=== PATIENT | female | born 1940 | race Caucasian/White ===

== ENCOUNTER → 2016-11-30 | Outpatient (CLI) | payer MEDICARE, OTHER ==
[2016-11-30 16:32] LABS: BUN/Creatinine Ratio 23.1; Calcium 9.3 mg/dL (8.5-10.1); Potassium 4.3 mmol/L (3.5-5.1)
== END | disposition home or self-care (01) ==
LOC: LAB 14:20
PROVIDERS: ATTEND Internal Medicine Cardiovascular Disease
DX: I10 Essential (primary) hypertension (principal); E11.9 Type 2 diabetes mellitus without complications
CPT/HCPCS: 36415; 80048; 83036

== ENCOUNTER → 2017-02-17 | Outpatient (CLI) | payer MEDICARE, OTHER ==
[2017-02-17 10:16] LABS: Basophils # (auto) 0 uL; Basophils % (auto) 0.3 % (0.0-2.0); Eosinophils # (auto) 0.1 uL; Eosinophils % (auto) 1.3 % (0.0-7.0); Hematocrit 42.9 % (36.0-46.0); Hemoglobin 14.2 g/dL (12.2-16.2); Lymphocytes # (auto) 1.6 uL; Lymphocytes % (auto) 20.7 % (10.0-50.0); Mean Corpuscular Hemoglobin 30.5 pg (28.0-32.0); Mean Corpuscular Hgb Conc. 33.1 g/dL (32.0-36.0); Mean Corpuscular Volume 92.3 fL (80.0-100.0); Mean Platelet Volume 8.7 fL (7.4-10.4); Monocytes # (auto) 0.6 uL; Neutrophils # (auto) 5.4 uL; Neutrophils % (auto) 69.7 % (37.0-80.0); Platelet Count (auto) 252 10^3/uL (140-450); Red Cell Distribution Width 14.6 % (11.6-16.0); White Blood Cell 7.8 10^3/uL (4.4-10.8)
[2017-02-17 10:38] LABS: Albumin 3.3 g/dL (3.4-5.0); BUN/Creatinine Ratio 28.8; Bilirubin, Total 0.5 mg/dL (0.2-1.0); Calcium 8.9 mg/dL (8.5-10.1); Potassium 4.3 mmol/L (3.5-5.1)
== END | disposition home or self-care (01) ==
LOC: LAB 09:52
PROVIDERS: ATTEND Internal Medicine
DX: I10 Essential (primary) hypertension (principal); Z00.00 Encounter for general adult medical examination without abnormal findings; E78.5 Hyperlipidemia, unspecified; I73.9 Peripheral vascular disease, unspecified
CPT/HCPCS: 36415; 80053; 80061; 82043; 82306; 84443; 85025

== ENCOUNTER → 2017-03-01 | Outpatient (CLI) | payer MEDICARE, OTHER ==
[2017-03-01 16:39] LABS: Potassium 4.3 mmol/L (3.5-5.1)
[2017-03-01 16:44] LABS: BUN/Creatinine Ratio 26.9; Calcium 8.9 mg/dL (8.5-10.1)
== END | disposition home or self-care (01) ==
LOC: LAB 14:04
PROVIDERS: ATTEND Internal Medicine Cardiovascular Disease
DX: I10 Essential (primary) hypertension (principal); E11.9 Type 2 diabetes mellitus without complications
CPT/HCPCS: 36415; 80048; 83036

== ENCOUNTER → 2017-09-14 | Outpatient (CLI) | payer MEDICARE, OTHER ==
[~2017-09-14] VITALS: Ht 165.1 cm; Wt 92.5 kg
== END | disposition home or self-care (01) ==
LOC: Rad HDHVI 07:47
PROVIDERS: ATTEND Internal Medicine Cardiovascular Disease
DX: Z01.810 Encounter for preprocedural cardiovascular examination (principal); I25.10 Atherosclerotic heart disease of native coronary artery without angina pectoris; E78.5 Hyperlipidemia, unspecified
CPT/HCPCS: 78452; 93017; 93880; 96374; A9500

== ENCOUNTER → 2018-03-16 | Outpatient (CLI) | payer MEDICARE, BC | END | disposition home or self-care (01) | LOC: Rad HDHVI 13:42 | PROVIDERS: ATTEND Internal Medicine Cardiovascular Disease | DX: E11.40 Type 2 diabetes mellitus with diabetic neuropathy, unspecified (principal); I25.10 Atherosclerotic heart disease of native coronary artery without angina pectoris; E78.5 Hyperlipidemia, unspecified; I10 Essential (primary) hypertension; E11.9 Type 2 diabetes mellitus without complications; E78.00 Pure hypercholesterolemia, unspecified; I65.22 Occlusion and stenosis of left carotid artery | CPT/HCPCS: 93880 ==

== ENCOUNTER → 2018-09-26 | Outpatient (CLI) | payer MEDICARE, BC | END | disposition home or self-care (01) | LOC: Rad HDHVI 14:56 | PROVIDERS: ATTEND Internal Medicine Cardiovascular Disease | DX: I07.1 Rheumatic tricuspid insufficiency (principal); I10 Essential (primary) hypertension; I20.9 Angina pectoris, unspecified | CPT/HCPCS: 93306 ==

== ENCOUNTER → 2018-10-13 | Outpatient (CLI) | payer MEDICARE, BC ==
[~2018-10-13] VITALS: Ht 166.4 cm; Wt 87.5 kg
[2018-10-13 11:52] LABS: Basophils # (auto) 0 uL; Basophils % (auto) 0.8 % (0.0-2.0); Eosinophils # (auto) 0.5 uL; Hematocrit 40.6 % (36.0-46.0); Hemoglobin 13.3 g/dL (12.2-16.2); Lymphocytes # (auto) 1.1 uL; Lymphocytes % (auto) 17.9 % (10.0-50.0); Mean Corpuscular Hemoglobin 31.1 pg (28.0-32.0); Mean Corpuscular Hgb Conc. 32.7 g/dL (32.0-36.0); Monocytes # (auto) 0.6 uL; Monocytes % (auto) 10.9 % (0.0-12.0); Neutrophils # (auto) 3.6 uL; Neutrophils % (auto) 61.4 % (37.0-80.0); Nucleated Red Blood Cells % 0.2 %; Platelet Count (auto) 257 10^3/uL (140-450); Red Blood Cells 4.27 10^6/uL (4.0-5.20); Red Cell Distribution Width 13.7 % (11.8-14.3); Urine Blood 1+ /uL (Negative); Urine Specific Gravity 1.022 (1.001-1.035); White Blood Cell 5.9 10^3/uL (4.4-10.8)
[2018-10-13 12:04] LABS: Chloride 105 mmol/L (98-107); Potassium 4.3 mmol/L (3.5-5.1); Sodium 139 mmol/L (136-145)
[2018-10-13 12:11] LABS: Free T4 (Free Thyroxine) 1.12 ng/dL (0.89-1.76)
[2018-10-13 12:13] LABS: Alanine Aminotransferase 23 U/L (13-56); Albumin 3.1 g/dL (3.4-5.0); Alkaline Phosphatase 65 U/L (45-117); Anion Gap 5 (5-15); Aspartate Aminotransferase 13 U/L (15-37); BUN/Creatinine Ratio 28.8; Bilirubin, Total 0.4 mg/dL (0.2-1.0); Blood Urea Nitrogen 19 mg/dL (7-18); Calcium 8.6 mg/dL (8.5-10.1); Carbon Dioxide 29 mmol/L (21-32); Cholesterol 122 mg/dL (< 200); GFR African American > 60 mL/min; GFR Non-African American > 60 mL/min; Glucose 146 mg/dL (74-106); HDL Cholesterol 41 mg/dL (40-59); LDL Cholesterol 72 mg/dL (< 100); Total Protein 7.2 g/dL (6.4-8.2); Triglycerides 93 mg/dL (< 150)
== END | disposition home or self-care (01) ==
LOC: Rad HDHVI 08:25
PROVIDERS: ATTEND Internal Medicine Cardiovascular Disease
DX: I10 Essential (primary) hypertension (principal); E78.00 Pure hypercholesterolemia, unspecified; E11.40 Type 2 diabetes mellitus with diabetic neuropathy, unspecified; E11.65 Type 2 diabetes mellitus with hyperglycemia; E03.9 Hypothyroidism, unspecified; E11.9 Type 2 diabetes mellitus without complications; E55.9 Vitamin D deficiency, unspecified; D51.9 Vitamin B12 deficiency anemia, unspecified; N39.0 Urinary tract infection, site not specified
CPT/HCPCS: 36415; 78452; 80053; 80061; 81003; 82306; 82607; 83036; 84439; 84443; 85025; 87086; 93017; 96374; A9500

== ENCOUNTER 2018-11-21 23:13 | Emergency (ER) | payer MEDICARE, BC ==
[~2018-11-21] VITALS: Ht 165.1 cm; Wt 90.7 kg
[2018-11-22] MEDS ORDERED: PROPOFOL 100 ML IV ONE (01:54)
[2018-11-22] MEDS ORDERED: FAMOTIDINE (10MG/ML) 2ML VL IV ONE (02:00)
[2018-11-22] MEDS ORDERED: METOCLOPRAMIDE HCL 5MG/ml INJ 2ml VIAL IV ONE (02:00)
[2018-11-22] MEDS ORDERED: PROPOFOL 10 MG/ML 20 ML IV ONE ×2 (02:00→02:15)
[2018-11-22 02:25] VITALS: BP 142/76
== END 2018-11-22 02:44 | disposition home or self-care (01) ==
LOC: ER 23:22
DX: S43.005A Unspecified dislocation of left shoulder joint, initial encounter (principal); I10 Essential (primary) hypertension; Z88.6 Allergy status to analgesic agent; W01.0XXA Fall on same level from slipping, tripping and stumbling without subsequent striking against object, initial encounter; Y93.01 Activity, walking, marching and hiking; Y92.89 Other specified places as the place of occurrence of the external cause; Y99.8 Other external cause status
CPT/HCPCS: 23650; 73020; 73060; 96374; 96375; 99152; 99285; J2704; J2765; J3490; J7030

== ENCOUNTER 2019-02-21 06:58 | Day surgery (SDC) | payer MEDICARE, BC ==
[2019-02-17 09:54] LABS: Basophils # (auto) 0.1 uL; Basophils % (auto) 0.6 % (0.0-2.0); Eosinophils # (auto) 0.1 uL; Eosinophils % (auto) 1.1 % (0.0-7.0); Hematocrit 47.1 % (36.0-46.0); Hemoglobin 15.4 g/dL (12.2-16.2); Lymphocytes # (auto) 1.1 uL; Lymphocytes % (auto) 12.9 % (10.0-50.0); Mean Corpuscular Hemoglobin 30.3 pg (28.0-32.0); Mean Corpuscular Hgb Conc. 32.7 g/dL (32.0-36.0); Mean Corpuscular Volume 92.7 fL (80.0-100.0); Monocytes # (auto) 0.6 uL; Monocytes % (auto) 7.4 % (0.0-12.0); Neutrophils # (auto) 6.6 uL; Platelet Count (auto) 250 10^3/uL (140-450); Red Blood Cells 5.08 10^6/uL (4.0-5.20); Red Cell Distribution Width 14.4 % (11.8-14.3); White Blood Cell 8.4 10^3/uL (4.4-10.8)
[2019-02-17 10:06] LABS: Urine Bacteria FEW /hpf (None Seen); Urine Blood 1+ /uL (Negative); Urine Specific Gravity 1.024 (1.001-1.035); Urine WBC 5 /hpf (0 - 5)
[2019-02-17 10:09] LABS: Albumin 3.5 g/dL (3.4-5.0); Calcium 9.5 mg/dL (8.5-10.1); Potassium 3.9 mmol/L (3.5-5.1)
[2019-02-17 10:12] LABS: BUN/Creatinine Ratio 31.5; Bilirubin, Total 0.5 mg/dL (0.2-1.0); Total Protein 8.4 g/dL (6.4-8.2)
[2019-02-17 10:53] LABS: INR 0.97 (0.9-1.15); Partial Thromboplastin Time 26.6 sec (23.64-32.05)
[~2019-02-21] VITALS: Ht 165.1 cm; Wt 85.3 kg
[~2019-02-21 06:58] MED LIST: CALC1TAB47 PO; CHOL200021 PO; EMPA1TAB3 PO; GLIM4TAB42 PO; LISI-275 PO; MESA0.37 PO; METF-370 PO; MISC-1089 OR; SIMV-8 PO
[2019-02-21] MEDS ORDERED: HYDROmorphone HCL 2 MG/ML VL ONE (08:20)
[2019-02-21] MEDS ORDERED: ROCURONIUM 10MG/ML 10ML VIAL IV ONE (08:20)
[2019-02-21] MEDS ORDERED: SODIUM CHLORIDE LOCK 10 ML ONE (08:20)
[2019-02-21] MEDS ORDERED: ONDANSETRON HCL 4 MG/2 ML VIAL ONE (08:20)
[2019-02-21] MEDS ORDERED: fentaNYL CITRATE 10 ML ONE (08:20)
[2019-02-21] MEDS ORDERED: LIDOCAINE HCL 2% TOP JELLY 5ML TOP ONE (08:20)
[2019-02-21] MEDS ORDERED: PROPOFOL 10 MG/ML 20 ML IV ONE (08:20)
[2019-02-21] MEDS ORDERED: KETOROLAC TROMETH 60MG/2ML VIAL IM ONE (08:20)
[2019-02-21] MEDS ORDERED: MIDAZOLAM HCL 1MG/1ML-2 ML VIAL ONE (08:20)
[2019-02-21] MEDS ORDERED: fentaNYL CITRATE 100 MCG/2 ML VL ONE (08:20)
[2019-02-21] MEDS ORDERED: ceFAZolin 1GM/50ML 50 ML IV ONE (09:38)
[2019-02-21] MEDS ORDERED: KETOROLAC TROMETH 30 MG/ML 1ML VIAL IV ONE (09:45)
[2019-02-21] MEDS ORDERED: METOCLOPRAMIDE HCL 5MG/ml INJ 2ml VIAL IV ONE (09:45)
[2019-02-21] MEDS ORDERED: ACCU-CHEK COMFORT CURVE STRIP VI ONE (09:45)
[2019-02-21] MEDS ORDERED: HYDROmorphone HCL 2 MG/ML VL IV PRN (09:45)
[2019-02-21] MEDS ORDERED: MORPHINE SULFATE INJECTION 1 ML ONE (09:48)
[2019-02-21] MEDS ORDERED: ceFAZolin 1GM VL ONE (10:00)
[2019-02-21] MEDS ORDERED: LIDOCAINE 1% HCL (LOCAL ANESTH.) INJ 20ML MDV ONE (10:11)
[2019-02-21] MEDS ORDERED: KETOROLAC TROMETH 60MG/2ML VIAL ONE (11:18)
[2019-02-21 13:00] VITALS: BP 141/71
== END 2019-02-21 13:30 | disposition home or self-care (01) ==
LOC: SUR 06:58
PROVIDERS: ATTEND Orthopaedic Surgery
DX: M75.121 Complete rotator cuff tear or rupture of right shoulder, not specified as traumatic (principal); M75.21 Bicipital tendinitis, right shoulder; M19.011 Primary osteoarthritis, right shoulder; M75.41 Impingement syndrome of right shoulder; M24.111 Other articular cartilage disorders, right shoulder; M75.51 Bursitis of right shoulder; M65.811 Other synovitis and tenosynovitis, right shoulder; E66.9 Obesity, unspecified; E11.9 Type 2 diabetes mellitus without complications; Z87.59 Personal history of other complications of pregnancy, childbirth and the puerperium; Z96.631 Presence of right artificial wrist joint; Z96.698 Presence of other orthopedic joint implants; Z68.31 Body mass index [BMI] 31.0-31.9, adult; Z79.84 Long term (current) use of oral hypoglycemic drugs; Z79.899 Other long term (current) drug therapy
CPT/HCPCS: 23180; 23412; 23415; 36415; 80053; 81001; 82962; 83036; 85025; 85610; 85730; 88304; J0690; J1170; J1885; J2001; J2250; J2270; J2405; J2704; J3010

== ENCOUNTER → 2019-03-17 | Outpatient (CLI) | payer MEDICARE, BC ==
[2019-03-17 12:44] LABS: Potassium 4.3 mmol/L (3.5-5.1)
[2019-03-17 12:49] LABS: Albumin 3.3 g/dL (3.4-5.0); BUN/Creatinine Ratio 27.3; Calcium 8.8 mg/dL (8.5-10.1)
[2019-03-17 12:57] LABS: Bilirubin, Total 0.5 mg/dL (0.2-1.0); Total Protein 7.6 g/dL (6.4-8.2)
== END | disposition home or self-care (01) ==
LOC: LAB 08:36
PROVIDERS: ATTEND Internal Medicine Cardiovascular Disease
DX: E11.22 Type 2 diabetes mellitus with diabetic chronic kidney disease (principal)
CPT/HCPCS: 36415; 80053; 82043; 83036

== ENCOUNTER → 2019-09-04 | Outpatient (CLI) | payer MEDICARE, BC | END | disposition home or self-care (01) | LOC: Rad HDHVI 08:57 | PROVIDERS: ATTEND Internal Medicine Cardiovascular Disease | DX: I08.8 Other rheumatic multiple valve diseases (principal); I27.20 Pulmonary hypertension, unspecified; G45.9 Transient cerebral ischemic attack, unspecified; E11.65 Type 2 diabetes mellitus with hyperglycemia; R06.02 Shortness of breath; I50.33 Acute on chronic diastolic (congestive) heart failure; I25.5 Ischemic cardiomyopathy; I20.9 Angina pectoris, unspecified | CPT/HCPCS: 93306 ==

== ENCOUNTER → 2019-09-13 | Outpatient (CLI) | payer MEDICARE, BC ==
[~2019-09-13] VITALS: Ht 167.6 cm; Wt 79.4 kg
== END | disposition home or self-care (01) ==
LOC: Rad HDHVI 13:23
PROVIDERS: ATTEND Internal Medicine Cardiovascular Disease
DX: I10 Essential (primary) hypertension (principal); M19.90 Unspecified osteoarthritis, unspecified site; R06.02 Shortness of breath; E11.65 Type 2 diabetes mellitus with hyperglycemia; M79.89 Other specified soft tissue disorders; E78.00 Pure hypercholesterolemia, unspecified; R94.31 Abnormal electrocardiogram [ECG] [EKG]
CPT/HCPCS: 78452; 93017; 96374; A9500

== ENCOUNTER → 2019-10-05 | Outpatient (CLI) | payer MEDICARE, BC ==
[2019-10-05 12:13] LABS: Potassium 4.5 mmol/L (3.5-5.1)
[2019-10-05 12:20] LABS: Albumin 3.3 g/dL (3.4-5.0); BUN/Creatinine Ratio 45.9; Bilirubin, Total 0.4 mg/dL (0.2-1.0); Calcium 9.7 mg/dL (8.5-10.1); Total Protein 7.9 g/dL (6.4-8.2)
== END | disposition home or self-care (01) ==
LOC: LAB 09:25
PROVIDERS: ATTEND Internal Medicine Cardiovascular Disease
DX: E11.9 Type 2 diabetes mellitus without complications (principal); E78.5 Hyperlipidemia, unspecified
CPT/HCPCS: 36415; 80053; 83036

== ENCOUNTER → 2020-02-21 | Outpatient (CLI) | payer MEDICARE, BC | END | disposition home or self-care (01) | LOC: Rad HDHVI 09:30 | PROVIDERS: ATTEND Internal Medicine Cardiovascular Disease | DX: I07.1 Rheumatic tricuspid insufficiency (principal); I11.0 Hypertensive heart disease with heart failure; I50.33 Acute on chronic diastolic (congestive) heart failure; J44.9 Chronic obstructive pulmonary disease, unspecified | CPT/HCPCS: 93306 ==

== ENCOUNTER → 2020-05-13 | Outpatient (CLI) | payer MEDICARE, BC ==
[2020-05-13 12:08] LABS: Basophils # (auto) 0 10 ^3/uL (0-0.2); Basophils % (auto) 0.6 % (0.0-2.0); Eosinophils # (auto) 0.1 10 ^3/uL (0-0.8); Eosinophils % (auto) 1.6 % (0.0-7.0); Hematocrit 42.5 % (36.0-46.0); Hemoglobin 13.7 g/dL (12.2-16.2); Lymphocytes # (auto) 1.2 10 ^3/uL (0.4-5.4); Lymphocytes % (auto) 17.3 % (10.0-50.0); Mean Corpuscular Hemoglobin 30.7 pg (28.0-32.0); Mean Corpuscular Hgb Conc. 32.1 g/dL (32.0-36.0); Mean Corpuscular Volume 95.5 fL (80.0-100.0); Monocytes # (auto) 0.7 10 ^3/uL (0-1.3); Monocytes % (auto) 9.7 % (0.0-12.0); Neutrophils % (auto) 70.8 % (37.0-80.0); Nucleated Red Blood Cells % 0.1 %; Platelet Count (auto) 230 10^3/uL (140-450); Red Blood Cells 4.45 10^6/uL (4.0-5.20); Red Cell Distribution Width 13.7 % (11.8-14.3); White Blood Cell 7.1 10^3/uL (4.4-10.8)
[2020-05-13 12:38] LABS: Potassium 3.9 mmol/L (3.5-5.1)
[2020-05-13 12:51] LABS: Albumin 3.3 g/dL (3.4-5.0); BUN/Creatinine Ratio 33.9; Bilirubin, Total 0.6 mg/dL (0.2-1.0); Total Protein 7.1 g/dL (6.4-8.2)
[2020-05-13 12:54] LABS: Free T4 (Free Thyroxine) 1.03 ng/dL (0.89-1.76)
[2020-05-13 12:55] LABS: Free T3 3.16 pg/mL (2.3-4.2)
== END | disposition home or self-care (01) ==
LOC: LAB 11:05
PROVIDERS: ATTEND Internal Medicine Cardiovascular Disease
DX: Z13.228 Encounter for screening for other metabolic disorders (principal); Z13.0 Encounter for screening for diseases of the blood and blood-forming organs and certain disorders involving the immune mechanism; Z13.29 Encounter for screening for other suspected endocrine disorder; E78.5 Hyperlipidemia, unspecified; E55.9 Vitamin D deficiency, unspecified; R19.5 Other fecal abnormalities; R80.9 Proteinuria, unspecified; E11.9 Type 2 diabetes mellitus without complications
CPT/HCPCS: 36415; 80053; 80061; 82043; 82306; 83036; 84439; 84443; 84481; 85025

== ENCOUNTER → 2020-05-15 | Outpatient (CLI) | payer MEDICARE, BC | END | disposition home or self-care (01) | LOC: LAB 13:27 | PROVIDERS: ATTEND Internal Medicine Cardiovascular Disease | DX: Z13.228 Encounter for screening for other metabolic disorders (principal); E78.5 Hyperlipidemia, unspecified; Z13.0 Encounter for screening for diseases of the blood and blood-forming organs and certain disorders involving the immune mechanism; Z13.29 Encounter for screening for other suspected endocrine disorder | CPT/HCPCS: 82270 ==

== ENCOUNTER → 2020-12-03 | Outpatient (CLI) | payer MEDICARE, BC ==
[2020-12-03 12:13] LABS: Potassium 4.3 mmol/L (3.5-5.1)
[2020-12-03 12:23] LABS: Albumin 3.3 g/dL (3.4-5.0); BUN/Creatinine Ratio 41.9; Bilirubin, Total 0.6 mg/dL (0.2-1.0); Calcium 9.4 mg/dL (8.5-10.1); Total Protein 7.9 g/dL (6.4-8.2)
== END | disposition home or self-care (01) ==
LOC: LAB 09:15
PROVIDERS: ATTEND Internal Medicine Cardiovascular Disease
DX: E11.69 Type 2 diabetes mellitus with other specified complication (principal); E78.5 Hyperlipidemia, unspecified
CPT/HCPCS: 36415; 80053; 80061

== ENCOUNTER → 2020-12-06 | Outpatient (CLI) | payer MEDICARE, BC | END | disposition home or self-care (01) | LOC: LAB 09:09 | PROVIDERS: ATTEND Internal Medicine Cardiovascular Disease | DX: E11.69 Type 2 diabetes mellitus with other specified complication (principal) | CPT/HCPCS: 36415; 83036 ==

== ENCOUNTER → 2022-02-06 | Outpatient (CLI) | payer MEDICARE, BC ==
[2022-02-06 09:58] LABS: Basophils # (auto) 0.1 10 ^3/uL (0-0.2); Basophils % (auto) 0.8 % (0.0-2.0); Eosinophils # (auto) 0 10 ^3/uL (0-0.8); Eosinophils % (auto) 0.5 % (0.0-7.0); Hematocrit 41.2 % (36.0-46.0); Hemoglobin 13.7 g/dL (12.2-16.2); Lymphocytes # (auto) 0.8 10 ^3/uL (0.4-5.4); Lymphocytes % (auto) 9.4 % (10.0-50.0); Mean Corpuscular Hgb Conc. 33.3 g/dL (32.0-36.0); Monocytes # (auto) 0.7 10 ^3/uL (0-1.3); Monocytes % (auto) 8.4 % (0.0-12.0); Neutrophils # (auto) 6.5 10 ^3/uL (1.6-8.6); Neutrophils % (auto) 80.9 % (37.0-80.0); Red Blood Cells 4.43 10^6/uL (4.0-5.20); Red Cell Distribution Width 14.9 % (11.8-14.3); Urine Blood TRACE /uL (Negative); Urine Specific Gravity 1.019 (1.001-1.035)
[2022-02-06 10:26] LABS: Free T4 (Free Thyroxine) 1.08 ng/dL (0.89-1.76)
[2022-02-06 10:34] LABS: Albumin 2.9 g/dL (3.4-5.0); Calcium 9.1 mg/dL (8.5-10.1); Potassium 4.4 mmol/L (3.5-5.1)
[2022-02-06 10:39] LABS: BUN/Creatinine Ratio 42.6; Bilirubin, Total 0.7 mg/dL (0.2-1.0); Total Protein 6.9 g/dL (6.4-8.2)
== END | disposition home or self-care (01) ==
LOC: LAB 08:00
PROVIDERS: ATTEND Internal Medicine Cardiovascular Disease
DX: I10 Essential (primary) hypertension (principal); D51.3 Other dietary vitamin B12 deficiency anemia; E11.9 Type 2 diabetes mellitus without complications; E55.9 Vitamin D deficiency, unspecified; R00.2 Palpitations; R53.1 Weakness; R30.0 Dysuria
CPT/HCPCS: 36415; 80053; 80061; 81003; 82306; 82607; 83036; 84439; 84443; 85025

== ENCOUNTER 2022-05-13 16:43 | Emergency (ER) | payer MEDICARE, BC ==
[~2022-05-13] VITALS: Ht 165.1 cm; Wt 78.4 kg
[2022-05-13 17:26] VITALS: BP 144/67
[2022-05-13 18:29] LABS: Basophils # (auto) 0 10 ^3/uL (0-0.2); Basophils % (auto) 0.7 % (0.0-2.0); Eosinophils # (auto) 0.1 10 ^3/uL (0-0.8); Eosinophils % (auto) 2.3 % (0.0-7.0); Hematocrit 43.6 % (36.0-46.0); Lymphocytes # (auto) 0.5 10 ^3/uL (0.4-5.4); Lymphocytes % (auto) 8.6 % (10.0-50.0); Mean Corpuscular Hemoglobin 30.2 pg (28.0-32.0); Mean Corpuscular Hgb Conc. 32.1 g/dL (32.0-36.0); Mean Corpuscular Volume 94.2 fL (80.0-100.0); Monocytes # (auto) 0.6 10 ^3/uL (0-1.3); Neutrophils # (auto) 4.3 10 ^3/uL (1.6-8.6); Neutrophils % (auto) 77.4 % (37.0-80.0); Red Blood Cells 4.63 10^6/uL (4.0-5.20); Red Cell Distribution Width 13.7 % (11.8-14.3); White Blood Cell 5.5 10^3/uL (4.4-10.8)
[2022-05-13 18:57] LABS: Albumin 3.2 g/dL (3.4-5.0); Calcium 9.3 mg/dL (8.5-10.1); Potassium 3.9 mmol/L (3.5-5.1)
[2022-05-13 19:01] LABS: BUN/Creatinine Ratio 60.4; Bilirubin, Total 0.3 mg/dL (0.2-1.0); Total Protein 7.6 g/dL (6.4-8.2)
[2022-05-13] MEDS ORDERED: IOHEXOL 350 MG/ML 100ML IJ ONE (23:27)
== END 2022-05-14 01:55 | disposition left against medical advice (07) ==
LOC: ER 16:43
DX: S22.060A Wedge compression fracture of T7-T8 vertebra, initial encounter for closed fracture (principal); S22.080A Wedge compression fracture of T11-T12 vertebra, initial encounter for closed fracture; X58.XXXA Exposure to other specified factors, initial encounter; Y93.89 Activity, other specified; Y92.89 Other specified places as the place of occurrence of the external cause; Y99.8 Other external cause status
CPT/HCPCS: 36415; 71046; 71275; 80053; 83880; 84484; 85025; 93005; 99285; Q9967

== ENCOUNTER → 2022-08-24 | Outpatient (CLI) | payer MEDICARE, BC | END | disposition home or self-care (01) | LOC: Rad HDHVI 08:06 | PROVIDERS: ATTEND Internal Medicine Cardiovascular Disease | DX: I08.1 Rheumatic disorders of both mitral and tricuspid valves (principal); R00.2 Palpitations; R06.02 Shortness of breath | CPT/HCPCS: 93306 ==

== ENCOUNTER → 2022-12-24 | Outpatient (CLI) | payer MEDICARE, BC | END | disposition home or self-care (01) | LOC: Rad HDHVI 08:05 | PROVIDERS: ATTEND Internal Medicine Cardiovascular Disease | DX: I34.0 Nonrheumatic mitral (valve) insufficiency (principal); I11.9 Hypertensive heart disease without heart failure; E78.5 Hyperlipidemia, unspecified | CPT/HCPCS: 93306 ==

== ENCOUNTER → 2023-08-11 | Outpatient (CLI) | payer MEDICARE, BC ==
[~2023-08-11] MED LIST changes: -SIMV-8 PO; +SIMV20TA20 PO
== END | disposition home or self-care (01) ==
LOC: Rad HDHVI 13:29
PROVIDERS: ATTEND Internal Medicine Cardiovascular Disease
DX: I65.23 Occlusion and stenosis of bilateral carotid arteries (principal); I10 Essential (primary) hypertension; E78.5 Hyperlipidemia, unspecified
CPT/HCPCS: 93880

== ENCOUNTER → 2023-08-23 | Outpatient (CLI) | payer MEDICARE, BC ==
[~2023-08-23] VITALS: Ht 166.4 cm; Wt 79.4 kg
== END | disposition home or self-care (01) ==
LOC: Rad HDHVI 08:03
PROVIDERS: ATTEND Internal Medicine Cardiovascular Disease
DX: I10 Essential (primary) hypertension (principal); E11.9 Type 2 diabetes mellitus without complications; E78.00 Pure hypercholesterolemia, unspecified
CPT/HCPCS: 78452; 93017; 96374; A9500

== ENCOUNTER → 2023-10-13 | Outpatient (CLI) | payer MEDICARE, BC ==
[~2023-10-13] MED LIST changes: +LETR2.5T6 PO; +MULT-688 PO; +POM PO
[2023-10-13 10:03] VITALS: BP 146/81; PULSE 80; RESP 16; O2SAT 93
[2023-10-13 10:15] VITALS: BP 138/69; PULSE 75; RESP 16; O2SAT 94
== END | disposition home or self-care (01) ==
LOC: CHF HDHVI 09:50
PROVIDERS: ATTEND Internal Medicine Cardiovascular Disease
DX: Z01.818 Encounter for other preprocedural examination (principal); I44.4 Left anterior fascicular block; R94.31 Abnormal electrocardiogram [ECG] [EKG]; I10 Essential (primary) hypertension; I65.29 Occlusion and stenosis of unspecified carotid artery
CPT/HCPCS: 93005; G0463

== ENCOUNTER 2023-10-14 05:55 | Day surgery (SDC) | payer MEDICARE, BC ==
[2023-10-13 11:24] LABS: Eosinophils # (auto) 0 10 ^3/uL (0-0.8); Eosinophils % (auto) 0.7 % (0.0-7.0); Lymphocytes % (auto) 12.5 % (10.0-50.0); Mean Corpuscular Hemoglobin 37.9 pg (28.0-32.0); White Blood Cell 3.6 10^3/uL (4.4-10.8)
[2023-10-13 11:26] LABS: Basophils # (auto) 0.1 10 ^3/uL (0-0.2); Basophils % (auto) 1.8 % (0.0-2.0); Hematocrit 41.7 % (36.0-46.0); Lymphocytes # (auto) 0.4 10 ^3/uL (0.4-5.4); Mean Corpuscular Hgb Conc. 33.6 g/dL (32.0-36.0); Mean Corpuscular Volume 112.7 fL (80.0-100.0); Monocytes # (auto) 0.3 10 ^3/uL (0-1.3); Monocytes % (auto) 7.1 % (0.0-12.0); Neutrophils # (auto) 2.8 10 ^3/uL (1.6-8.6); Neutrophils % (auto) 77.9 % (37.0-80.0); Red Cell Distribution Width 14.4 % (11.8-14.3)
[2023-10-13 11:43] LABS: Anion Gap 5 (5-15); Carbon Dioxide 29 mmol/L (20-30); Chloride 105 mmol/L (98-107); INR 1.01 (0.9-1.15); Partial Thromboplastin Time 26.8 SEC (24.5-34.5); Potassium 4.3 mmol/L (3.5-5.1); Prothrombin Time 10.6 sec (9.3-11.8); Sodium 139 mmol/L (136-145)
[2023-10-13 11:44] LABS: Calcium 9.4 mg/dL (8.5-10.1)
[2023-10-13 11:49] LABS: BUN/Creatinine Ratio 27.7 (10.0-20.0); Blood Urea Nitrogen 18 mg/dL (9-23); Glucose 119 mg/dL (74-106)
[2023-10-13 14:36] LABS: Macrocytosis Marked; Platelet Estimate Adequate
[~2023-10-14] VITALS: Ht 152.4 cm; Wt 81.2 kg
[~2023-10-14 05:55] MED LIST changes: -LISI-275 PO; -MESA0.37 PO; -MISC-1089 OR
[2023-10-14] MEDS ORDERED: LIDOCAINE 2%HCL (LOCAL ANESTH.) INJ 20ML MDV ONE (09:06)
[2023-10-14] MEDS ORDERED: HEPARIN IN NS 1000Units/500mL 1,500 ML ONE (09:07)
[2023-10-14] MEDS ORDERED: IOHEXOL 350 MG/ML 100ML IJ ONE (09:07)
[2023-10-14] MEDS ORDERED: GLYCOPYRROLATE 0.2 MG/ML 1ML VIAL ONE ×2 (09:13→09:15)
[2023-10-14] MEDS ORDERED: SODIUM CHL 0.9% 0 ML ONE (09:13)
[2023-10-14] MEDS ORDERED: ANGIOMAX 250 MG VIAL IV ONE (09:13)
== END 2023-10-14 12:40 | disposition home or self-care (01) ==
LOC: CATH 05:55
PROVIDERS: ATTEND Internal Medicine Cardiovascular Disease
DX: I77.9 Disorder of arteries and arterioles, unspecified (principal); I65.22 Occlusion and stenosis of left carotid artery; Z86.73 Personal history of transient ischemic attack (TIA), and cerebral infarction without residual deficits; Z88.8 Allergy status to other drugs, medicaments and biological substances; Z98.891 History of uterine scar from previous surgery
CPT/HCPCS: 36223; 36415; 80048; 85025; 85610; 85730; C1769; C1894; J1644; J7030; Q9967; 99152

== ENCOUNTER → 2024-06-27 | Outpatient (CLI) | payer MEDICARE, BC ==
[2024-06-27 11:30] VITALS: BP 135/70; PULSE 91; RESP 20; O2SAT 92
[2024-06-27] MEDS: ceFAZolin 2 GM/D5W50ml 50 ML IV ONE (11:30)
[2024-06-27] MEDS: ceFAZolin 1GM/50ML 100 ML IV ONE (12:24)
[2024-06-27 13:30] VITALS: BP 146/64; PULSE 74; RESP 18; O2SAT 97
[2024-06-27] MEDS: ceFAZolin 1GM/50ML 50 ML IV ONE (16:16)
== END | disposition home or self-care (01) ==
LOC: CHF HDHVI 11:22
PROVIDERS: ATTEND Internal Medicine Cardiovascular Disease
DX: L02.512 Cutaneous abscess of left hand (principal); I10 Essential (primary) hypertension; E11.9 Type 2 diabetes mellitus without complications; E78.00 Pure hypercholesterolemia, unspecified; Z86.73 Personal history of transient ischemic attack (TIA), and cerebral infarction without residual deficits; Z88.8 Allergy status to other drugs, medicaments and biological substances
CPT/HCPCS: 96365; G0463; J0690

== ENCOUNTER → 2024-06-28 | Outpatient (CLI) | payer MEDICARE, BC ==
[2024-06-28 14:30] VITALS: BP 130/74; PULSE 73; RESP 18; O2SAT 96
[2024-06-28] MEDS: ceFAZolin 1GM/50ML 100 ML IV ONE (14:43)
[2024-06-28] MEDS: ceFAZolin 2 GM/D5W50ml 50 ML IV ONE (14:44)
[2024-06-28 15:45] VITALS: BP 144/74; PULSE 72; RESP 18; O2SAT 96
== END | disposition home or self-care (01) ==
LOC: CHF HDHVI 14:03
PROVIDERS: ATTEND Internal Medicine Cardiovascular Disease
DX: L02.512 Cutaneous abscess of left hand (principal); I10 Essential (primary) hypertension; E11.9 Type 2 diabetes mellitus without complications; E78.00 Pure hypercholesterolemia, unspecified; Z86.73 Personal history of transient ischemic attack (TIA), and cerebral infarction without residual deficits
CPT/HCPCS: 96365; G0463; J0690

== ENCOUNTER → 2024-07-17 | Outpatient (CLI) | payer MEDICARE, BC | END | disposition home or self-care (01) | LOC: Rad HDHVI 07:54 | PROVIDERS: ATTEND Internal Medicine Cardiovascular Disease | DX: I10 Essential (primary) hypertension (principal); R06.02 Shortness of breath | CPT/HCPCS: 93306 ==

== ENCOUNTER → 2024-09-18 | Outpatient (CLI) | payer MEDICARE, BC ==
[2024-09-18 13:44] VITALS: BP 154/69; PULSE 69; RESP 16; O2SAT 93
[2024-09-18 13:55] VITALS: BP 154/69; PULSE 69; RESP 17; O2SAT 93
--- NOTE | 2024-09-18 14:15 | DVH ---
INDICATION: PAIN IN WRIST TECHNIQUE: 4 radiographic views of the left wrist FINDINGS: The radio-ulnar, radio-carpal, intercarpal and metacarpal-carpal joints appear unremarkable .There is no evidence of acute fracture or dislocation.The visualized joint space is well maintained. The alignment is anatomical.The surrounding soft tissues are unremarkable.There is no bony lesions or erosions identified. IMPRESSION: No acute fracture.
== END | disposition home or self-care (01) ==
LOC: Rad HDHVI 13:33
PROVIDERS: ATTEND Internal Medicine Cardiovascular Disease
DX: M25.532 Pain in left wrist (principal); M25.531 Pain in right wrist
CPT/HCPCS: 73110; G0463

== ENCOUNTER → 2024-11-13 | Outpatient (CLI) | payer MEDICARE, BC | END | disposition home or self-care (01) | LOC: Rad HDHVI 12:38 | PROVIDERS: ATTEND Internal Medicine Cardiovascular Disease | DX: I10 Essential (primary) hypertension (principal) | CPT/HCPCS: 93880 ==

== ENCOUNTER → 2025-02-09 | Outpatient (CLI) | payer MEDICARE, BC ==
[2025-02-09 11:20] VITALS: BP 163/80; PULSE 89; RESP 18; O2SAT 93
[2025-02-09 11:33] VITALS: BP 143/67; PULSE 84; RESP 18; O2SAT 93
== END | disposition home or self-care (01) ==
LOC: CHF HDHVI 11:11
PROVIDERS: ATTEND Internal Medicine Cardiovascular Disease
DX: Z45.2 Encounter for adjustment and management of vascular access device (principal); I11.0 Hypertensive heart disease with heart failure; I50.9 Heart failure, unspecified; E78.5 Hyperlipidemia, unspecified
CPT/HCPCS: G0463; J1642; 96374; 96523

== ENCOUNTER 2025-06-04 07:59 | Outpatient (CLI) | payer MEDICARE, BC | END 2025-06-04 17:00 | disposition home or self-care (01) | LOC: Rad HDHVI 07:59 | PROVIDERS: ATTEND Internal Medicine Cardiovascular Disease | DX: I08.8 Other rheumatic multiple valve diseases (principal); I50.23 Acute on chronic systolic (congestive) heart failure | CPT/HCPCS: 93306 ==

== ENCOUNTER 2025-06-11 08:01 | Outpatient (CLI) | payer MEDICARE, BC ==
[~2025-06-11] VITALS: Ht 166.4 cm; Wt 79.4 kg
== END 2025-06-11 17:00 | disposition home or self-care (01) ==
LOC: Rad HDHVI 08:01
PROVIDERS: ATTEND Internal Medicine Cardiovascular Disease
DX: I49.3 Ventricular premature depolarization (principal); I49.1 Atrial premature depolarization; C50.919 Malignant neoplasm of unspecified site of unspecified female breast; I11.0 Hypertensive heart disease with heart failure; I50.23 Acute on chronic systolic (congestive) heart failure; R00.0 Tachycardia, unspecified; I27.21 Secondary pulmonary arterial hypertension; E11.9 Type 2 diabetes mellitus without complications; J44.9 Chronic obstructive pulmonary disease, unspecified; E78.00 Pure hypercholesterolemia, unspecified; R00.2 Palpitations; R06.02 Shortness of breath
CPT/HCPCS: 78452; 93017; A9500; 96374

== ENCOUNTER 2025-07-13 09:57 | Inpatient (IN) | payer MEDICARE, BC ==
[~2025-07-13] VITALS: Ht 166.4 cm; Wt 77.5 kg
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
[2025-07-13 10:53] LABS: Hematocrit 46.2 % (36.0-46.0); Hemoglobin 15.3 g/dL (12.2-16.2); Mean Corpuscular Hemoglobin 32.1 pg (28.0-32.0); Mean Corpuscular Volume 96.9 fL (80.0-100.0); Nucleated Red Blood Cells % 0.0 %
[2025-07-13 11:01] LABS: Chloride 102 mmol/L (98-107); Potassium 5.1 mmol/L (3.5-5.1); Sodium 141 mmol/L (136-145)
[2025-07-13 11:02] LABS: Anion Gap 8 (5-15); Calcium 9.1 mg/dL (8.7-10.4); Carbon Dioxide 31 mmol/L (20-31)
--- NOTE | 2025-07-13 11:02 | DVH ---
EXAM: XY CHEST PORTABLE Indication: sob Technique: Single frontal view of the chest was obtained Comparison: XY CHEST TWO VIEWS ROUTINE on DOS: 10/13/23, CT ANGIO CHEST CONTRAST on DOS: 05/13/22, CHES T TWO VIEWS ROUTINE on DOS: 05/13/22 FINDINGS: Lines and Tubes: Left chest port tip projects over the superior vena cava. Lungs: Small right pleural effusion and right basilar opacity. Pulmonary edema. No pneumothorax. Cardiomediastinal contours: Cardiomegaly. Bones: No acute osseous abnormality. IMPRESSION: Cardiomegaly.Small right pleural effusion and right basilar opacity. Pulmonary edema.
[2025-07-13 11:08] LABS: BUN/Creatinine Ratio 60.9 (10.0-20.0); Blood Urea Nitrogen 53 mg/dL (9-23); Glucose 210 mg/dL (74-106)
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
[2025-07-13 22:14] LABS: Urine Budding Yeast OCCASIONAL /hpf (None Seen); Urine Protein, UAD TRACE (Negative)
[2025-07-13] MEDS ORDERED: HYDROcodone-ACET 5/325MG TAB PO PRN (22:30)
[2025-07-13 23:40] VITALS: PULSE 84; RESP 14; O2SAT 96
[2025-07-13 23:44] LABS: INR 1.05 (0.9-1.15); Partial Thromboplastin Time 22.9 SEC (24.5-34.5); Prothrombin Time 11.1 sec (9.3-11.8)
[2025-07-13 23:49] LABS: Albumin 3.7 g/dL (3.2-4.8); Alkaline Phosphatase 109.0 U/L (46-116); Lipase 47.0 U/L (12-53); Magnesium 2.1 mg/dL (1.6-2.6); Total Protein 6.4 g/dL (5.7-8.2)
[2025-07-13 23:50] LABS: Bilirubin, Total 0.8 mg/dL (0.2-1.0)
[2025-07-13] MEDS: ENOXAPARIN SOD 40 MG/0.4 ML SYRINGE SC SCH (23:51)
[2025-07-14] VITALS (10 sets, daily range): BP systolic 112–140; BP diastolic 50–97; PULSE 63–105; RESP 18–20; TEMP 97.5–98.2; O2SAT 90–95
[2025-07-14 00:03] LABS: Alanine Aminotransferase 265.0 U/L (7-40)
[2025-07-14 00:05] LABS: Bilirubin, Direct 0.3 mg/dL (<0.3); Cholesterol 119.0 mg/dL (< 200); HDL Cholesterol 42.0 mg/dL (40-59); Triglycerides 153.0 mg/dL (< 150)
[2025-07-14] MEDS ORDERED: CARV-214 PO (00:26)
[2025-07-14] MEDS ORDERED: PROC10TA6 PO (00:26)
[2025-07-14] MEDS ORDERED: DEX4T PO (00:26)
[2025-07-14] MEDS ORDERED: PROCHLORPERAZINE MALEATE 10 MG TAB PO PRN (00:30)
[2025-07-14] MEDS ORDERED: DEXTROSE (50%) 50ML SYRG IV PRN (00:45)
--- NOTE | 2025-07-14 02:01 | DVH ---
INDICATION: transaminitis TECHNIQUE: Multiple real-time sonographic images were obtained of the right upper quadrant. COMPARISON: None FINDINGS: Liver is mildly enlarged measuring 17.2 cm with coarsening of the hepatic echotexture. Hypoechoic nod ule within the left lobe measuring 2.2 x 1.8 x 2.1 cm. There is no intrahepatic or extrahepatic ductal dilatation. The common duct measures 0.3 cm. Gallbladder difficult to visualized, likely contracted. The right kidney measures 12.3 cm. The right kidney is normal in contour, size, and shape. The echoge nicity is normal. There is no hydronephrosis. The pancreas is not well visualized due to overlying bowel gas. IMPRESSION: Coarsened appearance of the liver suggesting chronic liver disease. Indeterminate hypoechoic nodule within the left lobe. Suggests nonurgent liver protocol CT or MRI for characterization. Gallbladder not visualized, possibly contracted.
--- NOTE | 2025-07-14 03:07 | ECG ---
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
[2025-07-14 04:05] LABS: Hematocrit 42.3 % (36.0-46.0); Hemoglobin 14.0 g/dL (12.2-16.2); Mean Corpuscular Hemoglobin 32.1 pg (28.0-32.0); Mean Corpuscular Volume 97.1 fL (80.0-100.0); Nucleated Red Blood Cells % 0.0 %
[2025-07-14 04:19] LABS: Albumin 3.4 g/dL (3.2-4.8); Alkaline Phosphatase 100 U/L (46-116); Anion Gap 7 (5-15); BUN/Creatinine Ratio 53.0 (10.0-20.0); Bilirubin, Total 0.7 mg/dL (0.2-1.0); Chloride 104 mmol/L (98-107); Potassium 4.6 mmol/L (3.5-5.1); Sodium 142 mmol/L (136-145); Total Protein 6.0 g/dL (5.7-8.2)
[2025-07-14 04:23] LABS: Alanine Aminotransferase 239 U/L (7-40); Blood Urea Nitrogen 35 mg/dL (9-23); Calcium 8.4 mg/dL (8.7-10.4); Carbon Dioxide 31 mmol/L (20-31); Glucose 162 mg/dL (74-106)
[2025-07-14] MEDS: PANTOPRAZOLE 40 MG TAB PO SCH (06:00)
[2025-07-14] MEDS: ACCU-CHEK COMFORT CURVE STRIP VI SCH (06:41)
[2025-07-14] MEDS: InsuLIN REG 1unit/0.01ml Soln (100units/ml) SC SCH (06:42)
[2025-07-14] MEDS: CHOLECALCIFEROL (VITD3) 1,000UNIT=25mCg TAB PO SCH (09:37)
[2025-07-14] MEDS: CARVEDILOL 3.125 MG TAB PO SCH (09:38)
[2025-07-14] MEDS: CALCIUM MAGNESIUM ZINC PO SCH (09:39)
[2025-07-14] MEDS ORDERED: PATIENTS OWN MEDICATION (Cholecalciferol (D3) 2,000 UNIT) PO SCH (10:00)
[2025-07-14] MEDS ORDERED: PATIENTS OWN MEDICATION (Simvastatin 20 MG) PO SCH (10:00)
--- NOTE | 2025-07-14 11:09 | DVH ---
Bilateral lower extremity venous duplex Clinical History: elevated ddimer Comparison: None Technique: Duplex Doppler evaluation of the deep venous systems of both lower extremities from the common femora l veins to the popliteal veins including color Doppler and spectral/pulsed waveform analysis was perf ormed. Findings: RIGHT SIDE: The common femoral vein demonstrates appropriate compressibility and waveform variability. There is compressibility/patency of the great saphenous vein at the proximal thigh. The femoral vein demonstrates appropriate compressibility and waveform variability. The deep femoral vein demonstrates appropriate compressibility and waveform variability. The popliteal vein demonstrates appropriate compressibility and waveform variability. There is normal compressibility at the tibioperoneal trunk. LEFT SIDE: The common femoral vein demonstrates appropriate compressibility and waveform variability. There is compressibility/patency of the great saphenous vein at the proximal thigh. The femoral vein demonstrates appropriate compressibility and waveform variability. The deep femoral vein demonstrates appropriate compressibility and waveform variability. The popliteal vein demonstrates appropriate compressibility and waveform variability. There is normal compressibility at the tibioperoneal trunk. Impression: 1. No right or left femoropopliteal venous thrombosis.
[2025-07-14] MEDS: IOHEXOL 300 MG/ML 100ML BOTTLE IJ ONE (12:13)
[2025-07-14] MEDS: FUROSEMIDE 40 MG/4 ML VIAL IV ONE (12:49)
--- NOTE | 2025-07-14 13:07 | DVH ---
EXAM DESCRIPTION: CT CT ANGIO CHEST CONTRAST CLINICAL HISTORY: Rule out PE COMPARISON: None available. TECHNIQUE:/ CT angiogram of the chest was performed. MPR and MIP images were generated. CTDI/ DLP = 21.55/2.1 4 Dose reduction technique with one or more of the following methods was performed: Automated exposure control, adjustment of the mA and/or kV according to patient size, use of iterative reconstruction te chnique. FINDINGS: Lines / Tubes / Devices: Left chest wall Port-A-Cath in place with the catheter terminating in the gutierrez perior vena cava. Lymph nodes: No suspicious mediastinal, hilar, or axillary lymph nodes. Mediastinum: Mild cardiomegaly. Aortic valve leaflet calcifications. No pericardial effusion. Normal caliber of the thoracic aorta. Moderate atherosclerotic calcifications of the aorta. Coronary arter y calcifications. Pulmonary artery: Limited evaluation for pulmonary embolus due to motion and contrast bolus timing. W ithin the limits, there is no evidence of pulmonary embolus to the proximal segmental level.. Enlarge d pulmonary artery. No straightening or bowing of the interventricular septum. Lungs / Airways: No suspicious nodules. Mild reticulation in the anterior right lung, likely related to prior radiation treatment. Elevated right hemidiaphragms with bibasilar subsegmental atelectasis, right greater than left. The central airways are patent. Pleura: Trace right pleural effusion. No pneumothorax. Soft tissues: Status post right mastectomy. mild anasarca. Bones: Acute minimally displaced fracture of the left anterior 2nd rib. Sclerotic changes of multiple right anterior ribs which may be related to chronic fracture, treatment change, or metastasis. 8 mm sclerotic lesion in the sternum. Degenerative changes of the visualized spine. Postoperative changes from vertebral augmentation in the thoracic spine. A few small sclerotic lesions noted in the thoraci c spine. Upper abdomen: Small hyperattenuating lesion in the right hepatic dome, likely a flash filling rasheeda ioma. 1.9 cm left adrenal nodule, indeterminate. 1.1cm right adrenal nodule, indeterminate. IMPRESSION: 1. Limited evaluation without definite evidence of pulmonary embolus to the proximal segmental level. 2. Acute minimally displaced fracture of the left anterior 2nd rib. No pneumothorax. 3. Elevated right hemidiaphragms with bibasilar subsegmental atelectasis, right greater than left. Tr jason right pleural effusion. 4. Mild cardiomegaly with findings suggestive of pulmonary hypertension. Coronary artery disease. 5. Mild anasarca. 6. Multiple sclerotic osseus lesions throughout the chest, likely metastatic. 7. Indeterminate bilateral adrenal nodules measuring up to 1.9 cm on the left
--- NOTE | 2025-07-14 13:30 | DVH ---
ULTRASOUND CHEST: REASON FOR EXAM: right pleural effusion TECHNIQUE: Real-time scans in multiple planes were obtained through both sides of the chest. FINDINGS: There is trace right pleural effusion. There is no significant left pleural effusion. IMPRESSION: Trace right pleural effusion.
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
[2025-07-14] MEDS: ATORVASTATIN 20 MG TAB PO SCH (21:32)
[2025-07-14 22:25] LABS: Amphetamine Screen, Urine Neg (NEGATIVE); Barbiturate Scree,Urine Neg (NEGATIVE); Benzodiazephine Screen, Urine Neg (NEGATIVE); Cannabinoid Screen, Urine Neg (NEGATIVE); Cocaine Screen, Urine Neg (NEGATIVE); Opiate Scree,Urine Neg (NEGATIVE); Phencyclidine Screen, Urine Neg (NEGATIVE)
[2025-07-14 22:32] LABS: COVID19 ANTIGEN SOFIA FIA NEGATIVE (NEGATIVE)
[2025-07-15] VITALS (8 sets, daily range): BP systolic 118–133; BP diastolic 50–83; PULSE 62–96; RESP 16–19; TEMP 97–98; O2SAT 90–98
[2025-07-15 05:35] LABS: Hematocrit 42.3 % (36.0-46.0); Hemoglobin 14.0 g/dL (12.2-16.2); Mean Corpuscular Hemoglobin 32.3 pg (28.0-32.0); Mean Corpuscular Volume 97.7 fL (80.0-100.0); Nucleated Red Blood Cells % 0.0 %
[2025-07-15 05:49] LABS: Chloride 100 mmol/L (98-107); Potassium 5.1 mmol/L (3.5-5.1); Sodium 140 mmol/L (136-145)
[2025-07-15 05:50] LABS: Anion Gap 7 (5-15)
[2025-07-15 05:56] LABS: Calcium 8.5 mg/dL (8.7-10.4); Carbon Dioxide 33 mmol/L (20-31); Glucose 199 mg/dL (74-106)
[2025-07-15 05:57] LABS: BUN/Creatinine Ratio 57.4 (10.0-20.0)
[2025-07-15 05:59] LABS: Blood Urea Nitrogen 35 mg/dL (9-23)
[2025-07-15] MEDS: FUROSEMIDE 40 MG/4 ML VIAL IV ONE (13:47)
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
[2025-07-15] MEDS ORDERED: DEXTROSE (50%) 50ML SYRG IV PRN (17:15)
[2025-07-15] MEDS: FUROSEMIDE 40 MG/4 ML VIAL IV SCH (17:52)
[2025-07-15] MEDS: InsuLIN REG 1unit/0.01ml Soln (100units/ml) SC SCH (17:54)
[2025-07-15] MEDS: ACCU-CHEK COMFORT CURVE STRIP VI SCH (17:57)
[2025-07-15] MEDS: INSULIN LANTUS (GLARGINE) 1 /0.01ml (100units/ml) SC SCH (20:30)
[2025-07-16] VITALS (7 sets, daily range): BP systolic 122–135; BP diastolic 72–84; PULSE 68–89; RESP 16–20; TEMP 98.1–98.4; O2SAT 90–99
[2025-07-16 06:34] LABS: Potassium 4.1 mmol/L (3.5-5.1); Sodium 141 mmol/L (136-145)
[2025-07-16 06:35] LABS: Anion Gap 6 (5-15)
[2025-07-16 06:37] LABS: Calcium 8.1 mg/dL (8.7-10.4); Carbon Dioxide 39 mmol/L (20-31); Chloride 96 mmol/L (98-107); Hematocrit 42.8 % (36.0-46.0); Hemoglobin 14.3 g/dL (12.2-16.2); Mean Corpuscular Hemoglobin 32.4 pg (28.0-32.0); Mean Corpuscular Volume 96.7 fL (80.0-100.0); Nucleated Red Blood Cells % 0.2 %
[2025-07-16 06:40] LABS: BUN/Creatinine Ratio 35.8 (10.0-20.0)
[2025-07-16 06:42] LABS: Blood Urea Nitrogen 24 mg/dL (9-23); Glucose 111 mg/dL (74-106)
[2025-07-16] MEDS: EMPAGLIFLOZIN 10 MG TAB PO SCH (08:49)
[2025-07-16 11:12] LABS: Hepatitis B Surface Antigen Negative (Negative)
[2025-07-16 11:26] LABS: Hepatitis C Antibody Negative (Negative)
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
[2025-07-17] VITALS (7 sets, daily range): BP systolic 115–129; BP diastolic 64–71; PULSE 76–95; RESP 16–18; TEMP 36.6; O2SAT 92–97
[2025-07-17 06:44] LABS: Hematocrit 40.3 % (36.0-46.0); Hemoglobin 13.3 g/dL (12.2-16.2); Mean Corpuscular Hemoglobin 31.5 pg (28.0-32.0); Mean Corpuscular Volume 95.2 fL (80.0-100.0); Nucleated Red Blood Cells % 0.0 %
[2025-07-17 07:03] LABS: Alkaline Phosphatase 92 U/L (46-116); Anion Gap 7 (5-15); BUN/Creatinine Ratio 40.8 (10.0-20.0); Blood Urea Nitrogen 20 mg/dL (9-23); Potassium 3.8 mmol/L (3.5-5.1); Sodium 140 mmol/L (136-145)
[2025-07-17 07:04] LABS: Albumin 3.2 g/dL (3.2-4.8)
[2025-07-17 07:05] LABS: Bilirubin, Total 0.6 mg/dL (0.2-1.0)
[2025-07-17 07:17] LABS: Alanine Aminotransferase 120 U/L (7-40); Calcium 7.7 mg/dL (8.7-10.4); Carbon Dioxide 37 mmol/L (20-31); Chloride 96 mmol/L (98-107); Glucose 122 mg/dL (74-106); Total Protein 5.6 g/dL (5.7-8.2)
[2025-07-17] MEDS ORDERED: CEPH500C PO (10:37)
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
[2025-07-17] MEDS ORDERED: FURO20TA3 PO (11:44)
[2025-07-17 14:00] LABS: Base Excess 11.6 mmol/L (-2.0-3.0)
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
== END 2025-07-17 19:20 | disposition home or self-care (01) | DRG 280 ==
LOC: EDBD 09:57 → ER 09:57 → OVERFLOW 22:21 → TELE-WESTW 07-14 03:02
PROVIDERS: ADMIT Internal Medicine Geriatric Medicine; ATTEND Internal Medicine Geriatric Medicine
DX: R07.89 Other chest pain (principal); J96.01 Acute respiratory failure with hypoxia; I21.A1 Myocardial infarction type 2; S22.32XA Fracture of one rib, left side, initial encounter for closed fracture; N39.0 Urinary tract infection, site not specified; I50.22 Chronic systolic (congestive) heart failure; C78.7 Secondary malignant neoplasm of liver and intrahepatic bile duct; I25.10 Atherosclerotic heart disease of native coronary artery without angina pectoris; R79.89 Other specified abnormal findings of blood chemistry; E78.5 Hyperlipidemia, unspecified; E11.65 Type 2 diabetes mellitus with hyperglycemia; I16.0 Hypertensive urgency; I11.0 Hypertensive heart disease with heart failure; E11.40 Type 2 diabetes mellitus with diabetic neuropathy, unspecified; X58.XXXA Exposure to other specified factors, initial encounter; Z20.822 Contact with and (suspected) exposure to COVID-19; Z85.3 Personal history of malignant neoplasm of breast; Z88.8 Allergy status to other drugs, medicaments and biological substances; Z85.828 Personal history of other malignant neoplasm of skin; Y93.89 Activity, other specified; Y92.89 Other specified places as the place of occurrence of the external cause; Y99.8 Other external cause status
CPT/HCPCS: 36415; 36600; 71045; 71275; 76604; 76705; 80048; 80053; 80061; 80074; 80076; 80307; 81001; 82040; 82306; 82607; 82805; 82962; 83036; 83690; 83735; 83880; 84100; 84443; 84484; 85025; 85379; 85610; 85730; 86141; 87086; 87426; 87804; 93005; 93970; 97163; 99291; 99292; G0378; J1815